=== PATIENT | male | born 2000 | race Caucasian/White ===

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

== ENCOUNTER 2020-08-14 12:03 | Emergency (ER) | payer MEDICAID, OTHER ==
[~2020-08-14] VITALS: Ht 188 cm; Wt 102.5 kg
[2020-08-14 12:03] VITALS: BP 136/78
[2020-08-14] MEDS ORDERED: OMEP40CA97 PO (12:11)
[2020-08-14] MEDS ORDERED: CARA1TAB6 PO (13:14)
[2020-08-14] MEDS ORDERED: IBUP-1022 PO (13:14)
== END 2020-08-14 14:30 | disposition home or self-care (01) ==
LOC: M ED 12:03
DX: K21.9 Gastro-esophageal reflux disease without esophagitis (principal); M54.9 Dorsalgia, unspecified; F32.9 Major depressive disorder, single episode, unspecified; F17.200 Nicotine dependence, unspecified, uncomplicated; Z79.899 Other long term (current) drug therapy

== ENCOUNTER 2023-11-10 09:41 | Emergency (ER) | payer OTHER, SELFPAY ==
[~2023-11-10] VITALS: Ht 188 cm; Wt 107.2 kg
[~2023-11-10 09:41] MED LIST: CARA1TAB6 PO; IBUP-1022 PO; OMEP40CA4 PO
[2023-11-10] MEDS ORDERED: KETOROLAC 30 MG/ML 1ML VIAL IV ONE (12:20)
[2023-11-10 12:56] LABS: BASO # 0.1 10^3/uL (0.0-0.2); BASO % 0.6 % (0.0-1.0); EOS # 0.1 10^3/uL (0.0-0.5); EOS % 0.6 % (0.0-3.0); HEMOGLOBIN 16.8 g/dl (13.5-17.5); LYMPH # 2.2 10^3/uL (1.5-5.0); LYMPH % 17.3 % (24.0-44.0); MEAN CORPUSCULAR HEMOGLOBIN 31.6 pg (27.0-33.0); MEAN CORPUSCULAR HGB CONC 34.3 g/dl (32.0-36.5); MEAN CORPUSCULAR VOLUME 92.3 fl (80.0-96.0); MONO # 0.8 10^3/uL (0.0-0.8); NEUTROPHILS # 9.7 10^3/uL (1.5-8.5); NEUTROPHILS % 75.3 % (36.0-66.0); PLATELET COUNT, AUTOMATED 408 10^3/uL (150-450); RED BLOOD COUNT 5.31 10^6/uL (4.30-6.10); WHITE BLOOD COUNT 12.9 10^3/uL (4.0-10.0)
[2023-11-10 13:19] LABS: C REACTIVE PROTEIN QUANTITATIV < 0.40 MG/DL (<1.0)
[2023-11-10 13:21] LABS: BLOOD UREA NITROGEN 9 MG/DL (9-23); CALCIUM LEVEL 9.3 MG/DL (8.5-10.1); CARBON DIOXIDE LEVEL 25 MMOL/L (20-31); CHLORIDE LEVEL 106 MMOL/L (98-107); CK-MB VALUE MASS < 1.0 NG/ML (<3.6); CREATININE FOR GFR 0.74 MG/DL (0.70-1.30); GLOMERULAR FILTRATION RATE > 60.0 (>60); GLUCOSE, FASTING 102 MG/DL (60-100); POTASSIUM SERUM 4.4 MMOL/L (3.5-5.1); SODIUM LEVEL 138 MMOL/L (136-145)
[2023-11-10 13:28] LABS: ERYTHROCYTE SEDIMENTATION RATE 6 mm/hr (0-15)
[2023-11-10 13:30] LABS: CPK CREATINE PHOSPHOKINASE 55 U/L (46-171); MB/CK RELATIVE INDEX 1.81 (< OR =4)
[2023-11-10 14:10] VITALS: BP 132/67; TEMP 98.3; O2SAT 98
== END 2023-11-10 14:18 | disposition home or self-care (01) ==
LOC: M ED 09:41
DX: R07.89 Other chest pain (principal); Z87.891 Personal history of nicotine dependence
CPT/HCPCS: 71046; 80048; 82550; 82553; 84484; 85025; 85379; 85652; 86140; 87486; 87581; 87633; 87798; 93005; 93041; 96374; 99284; J1885